=== PATIENT | female | born 1985 | race American Indian/Alaskan Native ===

== ENCOUNTER 2017-06-20 14:09 | Inpatient (IN) | payer OTHER ==
[2017-06-20] MEDS ORDERED: PEPCID IV SCH (15:10)
[2017-06-20] MEDS ORDERED: BICITRA PO SCH (15:10)
[2017-06-20] MEDS ORDERED: ANCEF/STERILE WATER 2 GM/20 ML 2 GM/20 ML SYRINGE IV ONE (15:26)
[2017-06-20] MEDS: LACTATED RINGERS 1,000 ML IV SCH ×2 (15:56→15:57)
--- NOTE | 2017-06-20 15:56 | History and Physical Report ---
History of Present Illness Date of examination: 06/20/17 (pt presented by EMS with c/o ctx states she is a previous c/s X 3; No care) Date of admission: 06/20/17 14:10 Chief complaint: ctx History of present illness: Had an US @ a resource center around 20 weeks gestation She was told then her EDC was 4-10-18 2006 girl emergency c/s for distress 2012 girl scheduled repeat section 2015 emergency c/s arrived in labor @ 38 weeks. Denies any medical HX Surgical HX c/s X 3 Drug use marijuana Last food 2030 last evening Water @ 1030 this AM Past History - Obstetrical History Expected Date of Delivery: 06/28/17 Actual Gestation: 38 Week(s) 6 Day(s) : 4 Para: 3 (c/s X 3) Number of Living Children: 3 Medications and Allergies Allergies Allergy/AdvReac Type Severity Reaction Status Date / Time No Known Allergies Allergy Unverified 06/20/17 14:39 Active Meds: Active Medications Citric Acid/Sodium Citrate (Bicitra) 30 ml PO ONCE KAYLEN Stop: 06/20/17 23:00 Famotidine (Pepcid) 20 mg IV ONCE KAYLEN Stop: 06/20/17 23:00 Lactated Ringer's (Lactated Ringers) 1,000 mls @ 2,250 mls/hr IV PREOP KAYLEN Stop: 06/21/17 16:27 Oxytocin/Sodium Chloride (Pitocin/Ns 20 Unit/1000ml Drip) 20 units in 1,000 mls @ 0 mls/hr IV TITR KAYLEN Metoclopramide HCl (Reglan) 10 mg IV ONCE KAYLEN Stop: 06/20/17 23:00 - Vital Signs Vital signs: Vital Signs Temp Resp 97.4 F L 20 06/20/17 14:40 06/20/17 14:40 Temp Pulse Resp BP Pulse Ox 97.4 F L 89 20 133/62 0 L 06/20/17 14:40 06/20/17 15:45 06/20/17 14:40 06/20/17 14:43 06/20/17 15:45 - Physical Exam Breasts: Positive: deferred Cardiovascular: Regular rate, Normal S1, Normal S2 Lungs: Positive: Normal air movement Abdomen: Positive: normal appearance, soft, normal bowel sounds. Negative: distention, tenderness Genitourinary (Female): Positive: normal external genitalia, normal perenium Vulva: both: normal Vagina: Positive: normal moisture. Negative: discharge Cervix: Negative: lesion, discharge Uterus: Positive: normal size, normal contour Adnexa: both: normal Anus/Rectum: Positive: normal perianal skin, heme negative. Negative: rectal mass, hemorrhoids Extremities: Positive: edema Deep Tendon Reflex Grade: Normal +2 - Obstetrical FHR: category 1 Uterine Contraction Monitor Mode: External Cervical Dilatation: 4 Cervical Effacement Percentage: 100 station: -1 Uterine Contraction Pattern: Regular Uterine Tone Measurement Phase: Resting Uterine Contraction Intensity: Moderate Results All other labs normal. No labs available Assessment and Plan - Patient Problems (1) No care in current in third trimester Onset Date: ~06/20/17 Current Visit: Yes Status: Acute Plan to address problem: All OB labs ordered Cervical chg active labor aware (2) Previous section Onset Date: ~06/20/17 Current Visit: Yes Status: Acute Plan to address problem: orders for repeat section in EMR. Pt has not had any PN care this . Denies any complications. Has used marijuana this . Orders in EMR
[2017-06-20 15:59] LABS: Basophils % (Auto) 0.4 % (0.0-1.8); Eosinophils % (Auto) 0.1 % (0.0-4.3); Hematocrit 28.2 % (30.3-42.9); Hemoglobin 9.3 gm/dl (10.1-14.3); Lymphocytes # (Auto) 1.4 K/mm3 (1.2-5.4); Lymphocytes % (Auto) 14.2 % (13.4-35.0); Mean Corpuscular HGB Conc 33 % (30-34); Mean Corpuscular Volume 78 fl (79-97); Monocytes # (Auto) 0.7 K/mm3 (0.0-0.8); Platelet Count 226 K/mm3 (140-440); Red Blood Count 3.62 M/mm3 (3.65-5.03); Red Cell Distribution Width 17.8 % (13.2-15.2)
[2017-06-20 16:00] LABS: Mean Corpuscular Hemoglobin 26 pg (28-32)
[2017-06-20] MEDS ORDERED: REGLAN IV SCH (16:10)
[2017-06-20 16:12] LABS: Amphetamine Screen,Urine PRESUMPTIVE NEGATIVE; Benzodiazepines Screen,Urine PRESUMPTIVE NEGATIVE; Cocaine Screen,Urine PRESUMPTIVE NEGATIVE; Methadone Screen,Urine PRESUMPTIVE NEGATIVE; Opiate Screen,Urine PRESUMPTIVE NEGATIVE
--- NOTE | 2017-06-20 16:18 | Anesthesia Day of Surgery ---
Anesthesia Day of Surgery - Day of Surgery Patient Examined: Yes Patient H&P Reviewed: Yes Patient is NPO: Yes
--- NOTE | 2017-06-20 16:18 | Anesthesia Consultation ---
Anesthesia Consult and Med Hx Date of service: 06/20/17 - Airway Anesthetic Teeth Evaluation: Good ROM Head & Neck: Adequate Mental/Hyoid Distance: Adequate Mallampati Class: Class II Intubation Access Assessment: Probably Good - Pre-Operative Health Status ASA Pre-Surgery Classification: ASA2 Proposed Anesthetic Plan: Epidural, Spinal - Pulmonary Hx Asthma: No - Cardiovascular System Hx Hypertension: No - Central Nervous System Hx Seizures: No Hx Psychiatric Problems: No - Endocrine Hx Renal Disease: No Hx Hypothyroidism: No Hx Hyperthyroidism: No - Hematic Hx Anemia: No Hx Sickle Cell Disease: No - Other Systems Hx Alcohol Use: No - Additional Comments Anesthesia Medical History Comments: no tracable care, h/o x 3
[2017-06-20] MEDS ORDERED: TORADOL IV PRN (16:19)
[2017-06-20] MEDS ORDERED: BENADRYL IV PRN (16:19)
[2017-06-20] MEDS ORDERED: PHENERGAN PO PRN (16:19)
[2017-06-20] MEDS ORDERED: NARCAN 0.4 MG/1 ML IV PRN ×2 (16:19→20:04)
[2017-06-20] MEDS ORDERED: PHENERGAN PR PRN (16:19)
[2017-06-20] MEDS ORDERED: ZOFRAN IV PRN (16:19)
[2017-06-20] MEDS ORDERED: DILAUDID IV PRN (16:19)
[2017-06-20 16:34] LABS: Cannabinoid Screen,Urine PRESUMPTIVE POSITIVE
[2017-06-20] MEDS ORDERED: NACL 0.9% IR ONE (16:40)
[2017-06-20] MEDS ORDERED: WATER FOR IRRIG STERILE IR ONE (16:40)
[2017-06-20] MEDS ORDERED: NEO SYNEPHRINE/NS Syringe(OR USE) IV ONE (16:45)
[2017-06-20] MEDS: PITOCin/NS 20 UNIT/1000ML DRIP 20 UNITS/1,000 ML BAG IV SCH ×2 (16:45→17:30)
[2017-06-20] MEDS ORDERED: ANCEF/STERILE WATER 2 GM/20 ML IV ONE (16:45)
[2017-06-20] MEDS ORDERED: NACL 0.9% 1000 ML 1,000 ML ONE ×2 (16:45→18:26)
[2017-06-20] MEDS ORDERED: SODIUM CHLORIDE FLUSH SYRINGE 10 ML IV NR ×2 (17:00→20:04)
[2017-06-20] MEDS ORDERED: ZOFRAN ONE (17:11)
[2017-06-20] MEDS ORDERED: ASTRAMORPH PF 10MG/10ML ONE (17:15)
[2017-06-20] MEDS ORDERED: DILAUDID ONE (17:34)
[2017-06-20] MEDS ORDERED: VERSED ONE (18:01)
[2017-06-20] MEDS ORDERED: XYLOCAINE MPF 2% ONE (18:16)
[2017-06-20] MEDS ORDERED: DILAUDID IV ONE (19:00)
--- NOTE | 2017-06-20 19:04 | Operative Report ---
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 Normal tubes and ovaries bilaterally male weight 6 lbs. 13 oz. Apgars 8 at 1 minute 9 at 5 minutes Specimen(s): Placenta Procedure: The patient was brought to the operating room. A spinal was placed without any complications. She was then placed in left lateral tilt. Prepped and draped in the usual sterile manner. After testing for adequate anesthesia level, a Pfannenstiel incision was made through her previous scar. This incision was taken down to the fascia. The fascia was then nicked in the midline. This incision was extended out laterally with Lindo scissors. The fascia was then sharply and bluntly from the underlying rectus muscles through thick scar. The rectus muscles were bluntly and sharply was thick scarring. The peritoneum was then entered with the ice cream machine operator 's fingers. This incision was spread vertically bluntly and sharply with care not to damage the bladder below. The bladder flap was then formed sharply and bluntly with Metzenbaum scissors. The blade was placed. The lower uterine segment was very thin. A transverse incision was made in lower uterine segment. This incision was extended laterally with the operators fingers. The amniotic sac was then entered bluntly with the ice cream machine operator's fingers. The was delivered from the vertex position. Bulb suction on the mother's abdomen. Cord was double clamped and cut. The was then passed to the nursery personnel who were in attendance. The above scores were given by the nursery personnel. The placenta was then bluntly removed. The uterus was then externalized and wiped clean the remaining products. The urinary bladder Dr. were found to be very close very thin. The uterine incision was closed in layers. The first incision was closed in a locking manner using 0 Vicryl. This was followed by imbricating stitch also with 0 Vicryl. This closure was to be very close to the bladder. Some hematuria are seen in the bladder. At this time did feel the bladder with 120 mL of sterile milk no leakage was seen the bladder was shown to be very close in the second layer closure was were revised again with care not to damage the bladder. The bladder was deflated doing the repair and reinflated 120 mL of sterile milk with no leakage seen and no evidence of enterotomy seen. The bladder flap was copiously irrigated and found to be hemostatic. The pelvis was copiously irrigated and found to be hemostatic. The uterus was then placed back to the patient's abdomen. Her GC L was placed along the uterine closure The retractors were removed. The rectus muscles were inspected and found to be hemostatic. The fascia was then closed in a running manner using 0 Vicryl. This incision was hemostatic irrigation Bovie. The skin was reapproximated with 4-0 Vicryl subcuticularly. The patient tolerated procedure well. Her urine was clear. The was admitted to the [facility] baby nursery. The patient was accompanied to recovery room in good condition. Instrument count correct 3. Ricardo was replaced prolonged postop to ensure healing of bladder
[2017-06-20] MEDS ORDERED: ANCEF/NS 1 GM/50 ML 1 GM/50 ML BAG IV SCH (20:04)
[2017-06-20] MEDS ORDERED: PITOCin/NS 20 UNIT/1000ML DRIP 20 UNITS/1,000 ML BAG IV SCH (20:04)
[2017-06-20] MEDS ORDERED: MILK OF MAGNESIA PO PRN (20:04)
[2017-06-20] MEDS ORDERED: LANSINOH TP PRN (20:04)
[2017-06-20] MEDS ORDERED: TUCKS PAD TP PRN (20:04)
[2017-06-20 20:30] LABS: Hepatitis C Virus Antibody Non-Reactive (NonReactive)
[2017-06-20 20:34] LABS: Rubella IgG Antibody Immune (Immune)
[2017-06-20] MEDS: D5LR 1,000 ML IV SCH (22:24)
[2017-06-20] MEDS: TORADOL IV SCH (22:25)
[2017-06-21] MEDS: ceFAZolin 1 GM in NACL 0.9% 20 ML IV SCH ×2 (00:06→08:40)
[2017-06-21 05:31] LABS: Hematocrit 21.5 % (30.3-42.9); Hemoglobin 6.9 gm/dl (10.1-14.3)
[2017-06-21] MEDS: TORADOL IV SCH ×3 (06:11→13:46)
[2017-06-21] MEDS: D5LR 1,000 ML IV SCH ×2 (06:14→15:46)
--- NOTE | 2017-06-21 07:48 | Progress Note ---
Assessment and Plan patient resting w/o complaints, pt reports pain well managed. dressing dry and intact (rn to remove during AM care.) Lochia scant, fundus firm, VSSAF, H&H 6.9/ 21.5 (preexisting anemia - asymptomatic, will start FE TID and colace BID) Per Dr. mackenzie, leave goetz in place. output adequate. Continue postop pathway. - Patient Problems (1) delivery delivered Current Visit: Yes Status: Acute Subjective - Subjective Date of service: 06/21/17 Principal diagnosis: postop day #1 s/p repeat c/s, no care Patient reports: appetite normal, pain well controlled, no flatus, no ambulating normally : bottle feeding (in nursery) Objective - Vital Signs Latest vital signs: Vital Signs Temp Pulse Resp BP BP Pulse Ox 06/21/17 06:41 18 06/21/17 06:11 18 06/21/17 04:53 98.1 F 77 18 98/51 98 06/21/17 00:42 98.4 F 80 18 109/58 97 06/20/17 22:55 18 06/20/17 22:25 18 06/20/17 20:30 98.3 F 87 18 122/73 100 06/20/17 19:45 84 19 113/69 100 06/20/17 19:41 88 18 118/57 100 06/20/17 19:35 96 H 15 130/68 100 06/20/17 19:30 92 H 21 131/78 100 06/20/17 19:25 91 H 17 129/75 99 06/20/17 19:20 83 19 136/76 100 06/20/17 19:15 90 21 144/65 100 06/20/17 19:13 20 06/20/17 19:12 102 H 20 136/71 99 06/20/17 19:11 108 H 20 65/26 06/20/17 19:06 97.9 F 86 20 65/26 99 06/20/17 19:05 94 H 26 H 136/97 100 06/20/17 19:01 93 H 20 136/97 100 06/20/17 18:55 100 H 21 136/97 100 06/20/17 18:50 91 H 19 139/103 99 06/20/17 18:45 97.5 F L 98 H 18 144/97 100 06/20/17 18:43 90 15 06/20/17 17:27 95 H 104/67 06/20/17 17:26 102 H 99 06/20/17 15:45 89 0 L 06/20/17 15:39 86 100 06/20/17 15:34 88 100 06/20/17 15:29 109 H 100 06/20/17 15:22 82 100 06/20/17 15:21 58 L 25 L 06/20/17 15:17 84 100 06/20/17 15:12 107 H 100 06/20/17 15:07 92 H 100 06/20/17 15:05 85 94 06/20/17 15:02 102 H 100 06/20/17 14:57 77 100 06/20/17 14:52 78 100 06/20/17 14:47 103 H 100 06/20/17 14:43 83 133/62 06/20/17 14:42 88 100 06/20/17 14:40 97.4 F L 20 Intake and Output 06/20/17 06/20/17 06/21/17 15:59 23:59 07:59 Intake Total 37.5 3147.5 1459.167 Output Total 280 600 Balance 37.5 2867.5 859.167 Intake: IV 37.5 2787.5 979.167 D5lr 1,000 ml @ 125 mls/ 979.167 hr IV DIRECT KAYLEN Rx#: [id number] Lactated Ringers 1,000 ml 37.5 @ 2250 mls/hr IV PREOP KAYLEN Rx#:[id number] PITOCin/NS 20 UNIT/1000ML 187.5 DRIP 20 units In 1,000 ml @ As Directed IV TITR KAYLEN Rx#:[id number] Oral 480 Intake, Free Water 360 Output: Urine 280 600 Indwelling Catheter 600 Void 0 Other: Total, Intake Amount 480 Total, Output Amount 600 # Bowel Movements 0 Weight 99.79 kg - Exam Breasts: Present: normal Cardiovascular: Present: Regular rate Lungs: Present: Clear to auscultation, Normal air movement Abdomen: Present: normal appearance, soft Vulva: both: normal Uterus: Present: normal, firm, fundal height at umbilicus Extremities: Present: normal Deep Tendon Reflex Grade: Normal +2 Incision: Present: normal, dry, dressed - Labs Labs: Abnormal lab results 06/20/17 06/21/17 Range/Units 15:46 04:58 RBC 3.62 L (3.65-5.03) M/mm3 Hgb 9.3 L 6.9 L (10.1-14.3) gm/dl Hct 28.2 L 21.5 L D (30.3-42.9) % MCV 78 L (79-97) fl MCH 26 L (28-32) pg RDW 17.8 H (13.2-15.2) % Seg Neutrophils % 78.3 H (40.0-70.0) %
[2017-06-21] MEDS: FEOSOL PO SCH ×3 (08:39→21:44)
[2017-06-21] MEDS ORDERED: FEOSOL PO SCH (10:00)
[2017-06-21] MEDS: COLACE PO SCH ×2 (10:49→21:44)
[2017-06-21] MEDS: PRENATAL VITAMIN PO SCH (10:49)
[2017-06-21] MEDS: NORCO 5/325 PO PRN (21:47)
[2017-06-21] MEDS: MOTRIN PO PRN (21:47)
[2017-06-22] MEDS: MOTRIN PO PRN ×3 (05:57→19:46)
[2017-06-22] MEDS: NORCO 5/325 PO PRN ×4 (06:00→19:45)
[2017-06-22 09:16] LABS: Hematocrit 23.6 % (30.3-42.9); Hemoglobin 7.6 gm/dl (10.1-14.3)
[2017-06-22] MEDS: COLACE PO SCH ×2 (09:23→21:10)
[2017-06-22] MEDS: FEOSOL PO SCH ×3 (09:24→19:45)
[2017-06-22] MEDS: PRENATAL VITAMIN PO SCH (09:24)
[2017-06-22] MEDS ORDERED: PHENERGAN PO PRN (09:30)
--- NOTE | 2017-06-22 10:38 | Discharge Summary ---
Providers - Providers Date of Admission: 06/20/17 14:10 Date of discharge: 06/22/17 (desires d/c home) Attending physician: LUZ URIBE 06/20/17 20:04 Consult to Technical Agronomist [CONS] Routine Reason For Exam: Primary care physician: LUZ URIBE Hospitalization Reason for admission: labor Condition: Good Procedures: repeat c/s Hospital course: c/s x4 complicated by adhesions, asymptomatic anemia, normal course Disposition: [place]- TO HOME OR SELFCARE - Discharge Diagnoses (1) delivery delivered Status: Acute Core Measure Documentation - Palliative Care Palliative Care/ Comfort Measures: Not Applicable - Core Measures Any of the following diagnoses?: none Exam - Constitutional Vitals: Temp Pulse Resp BP Pulse Ox 98.6 F 79 16 116/78 99 06/22/17 08:10 06/22/17 08:10 06/22/17 08:10 06/22/17 08:10 06/22/17 08:10 General appearance: Present: no acute distress, well-nourished - EENT Eyes: Present: PERRL ENT: hearing intact, clear oral mucosa - Neck Neck: Present: supple, normal ROM - Respiratory Respiratory effort: normal Respiratory: bilateral: CTA - Cardiovascular Heart Sounds: Present: S1 & S2. Absent: rub, click - Extremities Extremities: pulses symmetrical, No edema Peripheral Pulses: within normal limits - Abdominal General gastrointestinal: Present: soft, non-tender, non-distended, normal bowel sounds Female genitourinary: Present: normal - Integumentary Integumentary: Present: clear, warm, dry - Musculoskeletal Musculoskeletal: gait normal, strength equal bilaterally - Psychiatric Psychiatric: appropriate mood/affect, intact judgment & insight - Neurologic Neurologic: CNII-XII intact, moves all extremities - Additional findings Additional findings: incision D&I, lochia scant, repeat H&H increased from postop - asymptomatic. will d/c home with FE. Plan Activity: no restrictions Diet: regular Wound: open to air, keep clean and dry Follow up with: LUZ URIBE MD [Primary Care Provider] - 7 Days (Congratulations. Please call [phone] to schedule your incision check and your son's circumcision in 1 week. Call for any questions or concerns.) Prescriptions: Ferrous Sulfate [Feosol 325 MG tab] 325 mg PO BID #60 tablet Ibuprofen [Motrin 800 MG tab] 800 mg PO Q6H PRN #30 tablet PRN Reason: Pain oxyCODONE /ACETAMINOPHEN [Percocet 5/325 mg] 1 - 2 tab PO Q4H PRN #30 tablet PRN Reason: Pain, Moderate
[2017-06-22] MEDS ORDERED: ZOFRAN ODT PO PRN (13:35)
[2017-06-23] MEDS: MOTRIN PO PRN ×2 (03:34→09:38)
[2017-06-23] MEDS: NORCO 5/325 PO PRN (03:34)
[2017-06-23] MEDS: COLACE PO SCH (09:38)
[2017-06-23] MEDS: PRENATAL VITAMIN PO SCH (09:38)
[2017-06-23] MEDS: FEOSOL PO SCH (09:38)
[2017-06-23 10:29] VITALS: BP 113/71
--- NOTE | 2017-06-23 12:39 | Event Note ---
Date: 06/23/17 (d/c written) Pt OOB ambulating in room. No c/o voiced. Pt will call our office to paras postop visit and son's circ in 1 week all questions addressed
== END 2017-06-23 18:00 | disposition home or self-care (01) | DRG 766 ==
LOC: TRG 14:09 → EDBD 14:09 → APU 14:10 → TRG 14:10 → OB 20:03
PROVIDERS: ADMIT Obstetrics & Gynecology; ATTEND Obstetrics & Gynecology
PROC: 10D00Z1 Extraction of Products of Conception, Low, Open Approach (ICD-10-PCS; principal; 2017-06-20)
DX: O34.211 Maternal care for low transverse scar from previous cesarean delivery (principal); O99.02 Anemia complicating childbirth; D64.9 Anemia, unspecified; O99.62 Diseases of the digestive system complicating childbirth; K66.0 Peritoneal adhesions (postprocedural) (postinfection); Z3A.38 38 weeks gestation of pregnancy; Z37.0 Single live birth
CPT/HCPCS: 36415; 80307; 83036; 85014; 85018; 85025; 85660; 86592; 86706; 86762; 86803; 86850; 86900; 86901; 87806; 88307; C1765; J0690; J1170; J1885; J2250; J2274; J2370; J2405; J2590; J2765; J7030; J7120; J7121; Q0169